=== PATIENT | female | born 1995 | race African-American/Black ===

== ENCOUNTER 2016-12-01 22:22 | Emergency (ER) | payer OTHER ==
[~2016-12-01] VITALS: Ht 162.6 cm; Wt 59.0 kg
[~2016-12-01 22:22] MED LIST: AMOXICILLIN 50500 M1 PO; BACTRIM DS TAB1 EACH PO; DEPO-PROVERA; ESTARYLLA1 EACH PO; FLAGYL500 MG PO; IBUPROFEN 600600 M1 PO; NAPROSYN500 MG PO; NOHOMEMEDICATIONS; NORCO 5-325 TA1 EACH PO; PHENERGAN 25 MG25 M1 PO; PROMETHAZINE-C120 ML PO; ZOFRAN ODT4 MG PO
[2016-12-01 23:34] LABS: URINE BLOOD 3+ (Negative); URINE GLUCOSE-RANDOM* NEGATIVE (Negative); URINE KETONES 1+ (Negative); URINE LEUKOCYTES-REFLEX NEGATIVE (Negative); URINE PROTEIN (DIPSTICK) 1+ (Negative); URINE SPECIFIC GRAVITY >= 1.030 (1.003-1.035)
[2016-12-01 23:38] LABS: ICTOTEST (BILI CONFIRMATORY) Negative (Negative); URINE BILIRUBIN NEGATIVE (Negative); URINE COLOR DARK YELLOW
[2016-12-02] MEDS ORDERED: NAPROSYN500 MG PO (00:03)
[2016-12-02 00:06] LABS: SQUAMOUS >10 Many /LPF (0-3)
[2016-12-02 00:13] LABS: CASTS None Seen /LPF (None Seen); URINE WBC-REFLEX 0-5 Rare /HPF (0-5)
[2016-12-02 00:34] VITALS: BP 120/78
== END 2016-12-02 00:35 | disposition home or self-care (01) ==
LOC: ER 22:22
PROVIDERS: Emergency Medicine
DX: S70.02XA Contusion of left hip, initial encounter (principal); S80.11XA Contusion of right lower leg, initial encounter; S00.531A Contusion of lip, initial encounter; N90.7 Vulvar cyst; V89.2XXA Person injured in unspecified motor-vehicle accident, traffic, initial encounter; Y93.89 Activity, other specified; Y92.89 Other specified places as the place of occurrence of the external cause; Y99.8 Other external cause status

== ENCOUNTER 2017-08-14 18:00 | Emergency (ER) | payer BC, OTHER ==
[~2017-08-14] VITALS: Ht 162.6 cm; Wt 59.0 kg
[2017-08-14 18:12] LABS: URINE BILIRUBIN NEGATIVE (Negative); URINE BLOOD 2+ (Negative); URINE CLARITY SL CLOUDY; URINE COLOR YELLOW; URINE GLUCOSE-RANDOM* NEGATIVE (Negative); URINE KETONES TRACE (Negative); URINE PROTEIN (DIPSTICK) 2+ (Negative); URINE SPECIFIC GRAVITY 1.015 (1.005-1.035)
[2017-08-14 18:13] LABS: URINE LEUKOCYTES-REFLEX 3+ (Negative); URINE NITRITE-REFLEX POSITIVE (Negative)
[2017-08-14 18:21] LABS: BACTERIA-REFLEX >30 Many /HPF (None Seen); CASTS None Seen /LPF (None Seen); CRYSTALS None Seen /LPF (None Seen); MUCUS 4-6 Moderate strn/LPF (None Seen); SQUAMOUS 0-3 Few /LPF (0-3); URINE WBC-REFLEX >25 Many /HPF (0-5); WBC CLUMPS Many (None Seen)
[2017-08-14 19:03] LABS: ABSOLUTE NEUTROPHILS 4.4 thou/uL (1.4-8.2); BASOPHILS 0.7 % (0.0-2.0); HEMOGLOBIN 13.2 gm/dL (12.0-15.0); LYMPHOCYTES 24.6 % (24.0-44.0); MCH 30.8 pg (26.0-34.0); MCHC 33.8 g/dL (28.0-37.0); MCV 91.3 fL (80.0-100.0); MONOCYTES 11.4 % (1.0-8.0); PLATELET COUNT 225 thou/uL (150-400); POLYS 62.3 % (36.0-66.0); RBC 4.27 mil/uL (4.20-5.00)
[2017-08-14 19:10] LABS: CALCIUM 8.9 mg/dL (8.5-10.1); POTASSIUM 3.7 mmol/L (3.5-5.1)
[2017-08-14] MEDS ORDERED: NORCO 5-325 TA1 EACH PO (19:35)
[2017-08-14] MEDS ORDERED: IBUPROFEN 600600 M1 PO (19:35)
[2017-08-14] MEDS ORDERED: BACTRIM DS TAB1 EACH PO (19:35)
[2017-08-14] MEDS ORDERED: ZOFRAN4 MG PO (19:35)
[2017-08-14 20:04] VITALS: BP 111/65
== END 2017-08-14 20:05 | disposition home or self-care (01) ==
LOC: ER 18:00
PROVIDERS: Emergency Medicine
DX: N12 Tubulo-interstitial nephritis, not specified as acute or chronic (principal); Z88.8 Allergy status to other drugs, medicaments and biological substances